=== PATIENT | male | born 1975 | race Hispanic/Latino ===

== ENCOUNTER 2017-07-24 12:21 | Inpatient (IN) | payer OTHER ==
[2017-07-24] MEDS ORDERED: Sodium Chloride 0.9% 1,000 ML IV STA ×2 (12:57→14:09)
[2017-07-24] MEDS ORDERED: Piperacillin/Tazobact 3.375 GM in Sodium Chloride 0.9% 100 ML IVPB STA (12:58)
--- NOTE | 2017-07-24 13:06 | ED PDOC ---
HPI: General Adult Time Seen by Provider: 07/24/17 12:45 Chief Complaint (Nursing): Male Genitourinary History Per: Patient Additional Complaint(s): Pt. states for the past 6 days he's had progressively worsening rectal pain. Pt. was seen by Dr. Greer, PMD, who prescribed an unknown antibiotic which has not provided any relief. Denies fever, trauma, bleeding. Past Medical History Reviewed: Historical Data, Nursing Documentation, Vital Signs Vital Signs: Last Vital Signs Temp 98.9 F 07/24/17 18:17 Pulse 91 H 07/24/17 18:42 Resp 16 07/24/17 18:42 BP 123/89 07/24/17 18:17 Pulse Ox 98 07/24/17 18:21 - Medical History PMH: Diabetes, HTN - Surgical History Surgical History: No Surg Hx - Family History Family History: States: No Known Family Hx - Home Medications Home Medications: Ambulatory Orders Medication Instructions Recorded Alpha Lipoic Acid [Alpha Lipoic 300 mg PO TID 07/24/17 Acid] Clindamycin [Cleocin] 300 mg PO TID 07/24/17 Ibuprofen [Motrin Tab] 600 mg PO Q6H PRN 07/24/17 Lansoprazole [Prevacid 24Hr] 15 mg PO DAILY 07/24/17 Metformin ER [Glucophage XR] 750 mg PO BID 07/24/17 Metoprolol Tartrate [Lopressor] 25 mg PO Q12H 07/24/17 SITagliptin [Januvia] 100 mg PO DAILY 07/24/17 Turmeric Root Extract [Turmeric] 1,000 mg PO DAILY 07/24/17 Valsartan/Hydrochlorothiazide 1 tab PO DAILY 07/24/17 [Diovan Hct 160-12.5 mg Tab] traMADol [Ultram] 50 mg PO Q12H PRN 07/24/17 - Allergies Allergies/Adverse Reactions: Allergies Allergy/AdvReac Type Severity Reaction Status Date / Time No Known Allergies Allergy Verified 07/24/17 12:23 Review of Systems ROS Statement: Except As Marked, All Systems Reviewed And Found Negative Gastrointestinal: Positive for: Rectal Pain Physical Exam - Reviewed Nursing Documentation Reviewed: Yes Vital Signs Reviewed: Yes - Physical Exam Appears: Positive for: Well, Non-toxic, Uncomfortable Head Exam: Positive for: ATRAUMATIC, NORMAL INSPECTION, NORMOCEPHALIC Skin: Positive for: Normal Color, Warm. Negative for: Rash Eye Exam: Positive for: Normal appearance ENT: Positive for: Normal ENT Inspection Neck: Positive for: Normal, Painless ROM Cardiovascular/Chest: Positive for: Regular Rate, Rhythm Respiratory: Positive for: CNT, Normal Breath Sounds Gastrointestinal/Abdominal: Positive for: Normal Exam, Soft. Negative for: Tenderness Back: Positive for: Normal Inspection Rectal: Positive for: Other (L medial buttock with erythema moderate tenderness and fluctuance with extention into rectum; no bleeding noted) Extremity: Positive for: Normal ROM Neurologic/Psych: Positive for: Alert, Oriented - Laboratory Results Result Diagrams: 07/24/17 13:26 07/24/17 13:26 - ECG ECG: Positive for: Interpreted By Me ECG Rhythm: Positive for: Sinus Rhythm. Negative for: ST/T Changes Rate: 91 O2 Sat by Pulse Oximetry: 98 - Progress ED Course And Treament: Labs ordered. Pelvis CT w/ IV contrast ordered. Morphine 4mg IV, zofran 4mg IV, zosyn IV, vancomycin IV ordered. 1409 Pt. with continued pain. Glucose 354. IV NS bolus x 1, dilaudid 1mg IV ordered. 1724 Case d/w Corina and agrees with care. Requests pt. to be NPO after midnight. 1800 Case d/w Dr. Caceres, claims vice president. Medical Decision Making Medical Decision Making: Pelvic CT w/ IV contrast: Left perirectal fluid collection suspicious for abscess measures approximately 4.3 x 1.8 x 4.5 cm. Pt. returned from CT with worsening pain. Toradol 30mg IV ordered. Case d/w Rodney Awad, AURELIANO, and arrangements made for admisison due failed outpt therapy and intractable pain. Requests Dr. Arriaga for surgery consult. Call placed Dr. Arriaga. Disposition - Clinical Impression Clinical Impression: Perirectal abscess - Patient ED Disposition Is Patient to be Admitted: Yes - Disposition Disposition: Routine/Home Disposition Time: 17:27 Condition: STABLE
[2017-07-24] MEDS ORDERED: Morphine 4 MG/ML VIAL ONE ×2 (13:27→18:56)
[2017-07-24 13:31] LABS: BASO # 0.1 K/uL (0.0-0.2); EOS # 0.1 K/uL (0.0-0.7); EOS % 0.7 % (0.0-4.0); HEMATOCRIT 42.8 % (35.0-51.0); LYMPH # 1.3 K/uL (1.0-4.3); LYMPH % 18.4 % (20.0-40.0); MEAN CELL VOLUME 87.8 fl (80.0-94.0); MEAN CORPUSCULAR HEMOGLOBIN 31.3 pg (27.0-31.0); MEAN CORPUSCULAR HGB CONC 35.7 g/dL (33.0-37.0); MONO % 13.3 % (0.0-10.0); NEUT # 4.8 K/uL (1.8-7.0); NEUT % 66.6 % (50.0-75.0); NRBC % 0.1 % (0.0-0.0); RED CELL DISTRIBUTION WIDTH 12.3 % (11.5-14.5); WHITE BLOOD COUNT 7.2 K/uL (4.8-10.8)
[2017-07-24 13:35] LABS: VENOUS BLOOD GAS BASE EXCESS 2.2 mmol/L (0.0-2.0); VENOUS BLOOD GAS PCO2 35 mmHg (40-60); VENOUS BLOOD PH 7.47 (7.32-7.43)
[2017-07-24 13:39] LABS: ALB/GLOB RATIO 1.4 (1.0-2.1); ALKALINE PHOSPHATASE 173 U/L (38-126); ALT/SGPT 104 U/L (21-72); AST/SGOT 89 U/L (17-59); BILIRUBIN,TOTAL 1.3 mg/dl (0.2-1.3); BLOOD UREA NITROGEN 20 mg/dl (9-20); CALCIUM 9.9 mg/dL (8.4-10.2); CARBON DIOXIDE 27 mmol/L (22-30); CHLORIDE 97 mmol/L (98-107); GFR AFRICAN-AMERICAN > 60; GLUCOSE,RANDOM 352 mg/dL (75-110); POTASSIUM 4.8 MMOL/L (3.6-5.0); SODIUM 136 mmol/l (132-148)
[2017-07-24] MEDS ORDERED: HYDROmorphone 0.5 mg/0.5 ml ISec ONE ×2 (14:13→15:07)
[2017-07-24] MEDS ORDERED: HYDROmorphone 0.5 mg/0.5 ml ISec IVP STA (14:14)
[2017-07-24] MEDS ORDERED: Iohexol 300 100 ML IJ ONE (15:02)
[2017-07-24] MEDS ORDERED: Sodium Chloride 0.9% 50 ML IV ONE (15:02)
--- NOTE | 2017-07-24 17:12 | CT ---
PROCEDURE: CT Pelvis with contrast HISTORY: justin-rectal abscess COMPARISON: None available. TECHNIQUE: Contiguous axial images of the pelvis with contrast. Coronal and sagittal reformats generated and reviewed. Contrast dose: 95 mL Omnipaque 300 Radiation dose: Total exam DLP = 443.16 MGy-cm. This CT exam was performed using one or more of the following dose reduction techniques: Automated exposure control, adjustment of the mA and/or kV according to patient size, and/or use of iterative reconstruction technique. FINDINGS: BLADDER: Distended urinary bladder appears otherwise grossly unremarkable. REPRODUCTIVE ORGANS: Unremarkable. VISUALIZED BOWEL: Lack of oral contrast limits evaluation for bowel pathology. Visualized bowel loops appear within normal limits of caliber without evidence of obstruction. The appendix appears within normal limits of caliber. No secondary signs of acute appendicitis. PERITONEUM: No significant free fluid. No definite free air. LYMPH NODES: No bulky adenopathy identified. VASCULATURE: Unremarkable. BONES: No acute osseous abnormality is detected. OTHER FINDINGS: Left perirectal fluid collection suspicious for abscess measures approximately 4.3 x 1.8 x 4.5 cm (AP by transverse by cc). IMPRESSION: Left perirectal fluid collection suspicious for abscess measures approximately 4.3 x 1.8 x 4.5 cm.
[2017-07-24 18:51] LABS: PARTIAL THROMBOPLASTIN TIME 29.6 Seconds (25.6-37.1)
[2017-07-24] MEDS: Sodium Chloride 0.9% 1,000 ML IV SCH (18:59)
[2017-07-24] MEDS: Piperacillin/Tazobact 3.375 GM in Sodium Chloride 0.9% 100 ML IVPB SCH (21:36)
--- NOTE | 2017-07-24 22:19 | CP.PCM.CON ---
<Krunal Freeman - Last Filed: 07/24/17 22:11> History of Present Illness - History of Present Illness History of Present Illness: General Surgery Consult Re: perianal abscess HPI: 41M with progressive rectal pain and swelling x 6 days. Saw PMD after 3 days and was given clindamycin. Still worsened. Denies fever/chills, N/V, bleeding/discharge, SOB, chest pain, abd pain. PMH: DM, HTN, gastritis PSH: hernia repair SH: Former smoker quir 20+ years ago, 2-3glasses EtOH every other day, no drug use All: NKDA Meds: See MAR Review of Systems - Review of Systems All systems: reviewed and no additional remarkable complaints except (as per HPI ) Past Patient History - Past Social History Smoking Status: Never Smoked - CARDIAC Hx Hypertension: Yes - ENDOCRINE/METABOLIC Hx Endocrine Disorders: Yes (DM) - PSYCHIATRIC Hx Substance Use: No Meds Allergies/Adverse Reactions: Allergies Allergy/AdvReac Type Severity Reaction Status Date / Time No Known Allergies Allergy Verified 07/24/17 12:23 - Medications Medications: Current Medications Home Med (Alpha Lipoic Acid [Alpha Lipoic Acid]) 300 mg PO TID TARA Home Med (Metformin Er [Glucophage Xr]) 750 mg PO BID TARA Home Med (Turmeric Root Extract [Turmeric]) 1,000 mg PO DAILY TARA Hydrochlorothiazide (Microzide) 12.5 mg PO DAILY TARA Hydromorphone HCl (Dilaudid) 1 mg IVP Q4 PRN PRN Reason: Pain, severe (8-10) Last Admin: 07/24/17 21:35 Dose: 1 mg Sodium Chloride (Sodium Chloride 0.9%) 1,000 mls @ 125 mls/hr IV .Q8H TARA Stop: 07/25/17 18:00 Last Admin: 07/24/17 18:59 Dose: 125 mls/hr Vancomycin HCl 1 gm/ Sodium (Chloride) 250 mls @ 166.667 mls/hr IVPB Q12 TARA PRN Reason: Protocol Piperacillin Sod/Tazobactam (Sod 3.375 gm/ Sodium Chloride) 100 mls @ 100 mls/ hr IVPB Q12 TARA PRN Reason: Protocol Last Admin: 07/24/17 21:36 Dose: 100 mls/hr Insulin Human Regular (Humulin R) 0 units SC ACHS [facility] PRN Reason: Protocol Ketorolac Tromethamine (Toradol) 30 mg IVP Q6 PRN PRN Reason: Pain, Mild (1-3) Metoprolol Tartrate (Lopressor) 25 mg PO Q12H [facility] Last Admin: 07/24/17 20:05 Dose: Not Given Morphine Sulfate (Morphine) 4 mg IVP Q4 PRN PRN Reason: Pain, moderate (4-7) Last Admin: 07/24/17 18:56 Dose: 4 mg Pantoprazole Sodium (Protonix Ec Tab) 20 mg PO DAILY [facility] Sitagliptin Phosphate (Januvia) 100 mg PO DAILY [facility] Valsartan (Diovan) 160 mg PO DAILY [facility] Physical Exam - Constitutional Appears: Non-toxic, No Acute Distress - Head Exam Head Exam: ATRAUMATIC, NORMOCEPHALIC - Eye Exam Eye Exam: EOMI. absent: Scleral icterus - ENT Exam ENT Exam: Mucous Membranes Moist Additional comments: trachea midline - Respiratory Exam Respiratory Exam: NORMAL BREATHING PATTERN. absent: Respiratory Distress - Cardiovascular Exam Cardiovascular Exam: RRR. absent: Bradycardia, Tachycardia - GI/Abdominal Exam GI & Abdominal Exam: Soft. absent: Distended, Tenderness - Rectal Exam Rectal Exam: Deferred Additional comments: 4x4cm area of induration and erythema with central fluctuance. Very TTP. no drainage/bleeding noted - Extremities Exam Extremities exam: Positive for: pedal pulses present. Negative for: calf tenderness, pedal edema - Back Exam Back exam: absent: CVA tenderness (L), CVA tenderness (R) - Neurological Exam Neurological exam: Alert, Oriented x3 - Psychiatric Exam Psychiatric exam: Normal Affect, Normal Mood - Skin Skin Exam: Dry, Warm Results - Vital Signs Recent Vital Signs: Last Vital Signs Temp 99.2 F 07/24/17 19:50 Pulse 91 H 07/24/17 19:50 Resp 18 07/24/17 19:50 BP 130/81 07/24/17 19:50 Pulse Ox 95 07/24/17 19:50 - Labs Result Diagrams: 07/24/17 13:26 07/24/17 13:26 Labs: Laboratory Results - last 24 hr 07/24/17 07/24/17 07/24/17 13:08 13:26 13:26 WBC 7.2 RBC 4.87 Hgb 15.3 Hct 42.8 MCV 87.8 MCH 31.3 H MCHC 35.7 RDW 12.3 Plt Count 155 MPV 7.0 L Neut % (Auto) 66.6 Lymph % (Auto) 18.4 L Coke % (Auto) 13.3 H Eos % (Auto) 0.7 Baso % (Auto) 1.0 Neut # 4.8 Lymph # 1.3 Coke # 1.0 H Eos # 0.1 Baso # 0.1 PT INR APTT pO2 34 VBG pH 7.47 H VBG pCO2 35 L VBG HCO3 25.9 VBG Total CO2 26.6 VBG O2 Sat (Calc) 76.8 H VBG Base Excess 2.2 H VBG Potassium 4.3 A-a O2 Difference 72.0 Sodium 133.0 136 Chloride 97.0 L 97 L Glucose 370 H Lactate 2.1 FiO2 21.0 Crit Value Called To Dr bharath chandra Crit Value Called By 15 Crit Value Read Back Y Blood Gas Notified Time 1335 Potassium 4.8 Carbon Dioxide 27 Anion Gap 17 BUN 20 Creatinine 0.6 L Est GFR ( Amer) > 60 Est GFR (Non-Af Amer) > 60 POC Glucose (mg/dL) Random Glucose 352 H Calcium 9.9 Total Bilirubin 1.3 AST 89 H ALT 104 H Alkaline Phosphatase 173 H Total Protein 8.0 Albumin 4.7 Globulin 3.3 Albumin/Globulin Ratio 1.4 Venous Blood Potassium 4.3 Blood Type Antibody Screen BBK History Checked 07/24/17 07/24/17 07/24/17 18:10 18:10 21:42 WBC RBC Hgb Hct MCV MCH MCHC RDW Plt Count MPV Neut % (Auto) Lymph % (Auto) Coke % (Auto) Eos % (Auto) Baso % (Auto) Neut # Lymph # Coke # Eos # Baso # PT 12.1 INR 1.1 APTT 29.6 pO2 VBG pH VBG pCO2 VBG HCO3 VBG Total CO2 VBG O2 Sat (Calc) VBG Base Excess VBG Potassium A-a O2 Difference Sodium Chloride Glucose Lactate FiO2 Crit Value Called To Crit Value Called By Crit Value Read Back Blood Gas Notified Time Potassium Carbon Dioxide Anion Gap BUN Creatinine Est GFR ( Amer) Est GFR (Non-Af Amer) POC Glucose (mg/dL) 276 H Random Glucose Calcium Total Bilirubin AST ALT Alkaline Phosphatase Total Protein Albumin Globulin Albumin/Globulin Ratio Venous Blood Potassium Blood Type A POSITIVE Antibody Screen Negative BBK History Checked No verified bt - Imaging and Cardiology CT scan - pelvis Status: Image reviewed by me, Report reviewed by me Assessment & Plan - Assessment and Plan (Free Text) Assessment: 41M with perianal abscess Plan: NPO p MN IV abx, on vanc and zosyn IVF AM labs Analgesia PRN OR Friday07/25/17 D/W Dr. Darron Freeman PGY4 <Cristopher Rob - Last Filed: 07/25/17 12:54> History of Present Illness - History of Present Illness History of Present Illness: Patient was seen and examined at the bedside. Agree with resident's note above. Meds - Medications Medications: Current Medications Hydrochlorothiazide (Microzide) 12.5 mg PO DAILY [facility] Last Admin: 07/25/17 11:10 Dose: 12.5 mg Hydromorphone HCl (Dilaudid) 1 mg IVP Q4 PRN PRN Reason: Pain, severe (8-10) Last Admin: 07/25/17 09:34 Dose: 1 mg Sodium Chloride (Sodium Chloride 0.9%) 1,000 mls @ 125 mls/hr IV .Q8H [facility] Stop: 07/25/17 18:00 Last Admin: 07/25/17 11:10 Dose: 125 mls/hr Vancomycin HCl 1 gm/ Sodium (Chloride) 250 mls @ 166.667 mls/hr IVPB Q12 TARA PRN Reason: Protocol Last Admin: 07/25/17 11:08 Dose: 166.667 mls/hr Piperacillin Sod/Tazobactam (Sod 3.375 gm/ Sodium Chloride) 100 mls @ 100 mls/ hr IVPB Q12 TARA PRN Reason: Protocol Last Admin: 07/25/17 09:28 Dose: 100 mls/hr Insulin Human Regular (Humulin R) 0 units SC ACHS TARA PRN Reason: Protocol Last Admin: 07/25/17 09:27 Dose: Not Given Ketorolac Tromethamine (Toradol) 30 mg IVP Q6 PRN PRN Reason: Pain, Mild (1-3) Metformin HCl (Glucophage) 850 mg PO BID [facility] Last Admin: 07/25/17 11:02 Dose: Not Given Metoprolol Tartrate (Lopressor) 25 mg PO Q12H [facility] Last Admin: 07/25/17 08:25 Dose: 25 mg Morphine Sulfate (Morphine) 4 mg IVP Q4 PRN PRN Reason: Pain, moderate (4-7) Last Admin: 07/25/17 06:39 Dose: 4 mg Ondansetron HCl (Zofran Inj) 4 mg IVP Q6 PRN PRN Reason: Nausea/Vomiting Last Admin: 07/24/17 23:32 Dose: 4 mg Pantoprazole Sodium (Protonix Ec Tab) 20 mg PO DAILY [facility] Last Admin: 07/25/17 11:03 Dose: Not Given Sitagliptin Phosphate (Januvia) 100 mg PO DAILY [facility] Last Admin: 07/25/17 11:02 Dose: Not Given Valsartan (Diovan) 160 mg PO DAILY [facility] Last Admin: 07/25/17 11:10 Dose: Not Given Results - Vital Signs Recent Vital Signs: Last Vital Signs Temp 100.6 F H 07/25/17 08:39 Pulse 95 H 07/25/17 08:39 Resp 20 07/25/17 08:39 BP 137/92 H 07/25/17 08:39 Pulse Ox 98 07/25/17 08:39 - Labs Result Diagrams: 07/25/17 06:15 07/25/17 06:15 Labs: Laboratory Results - last 24 hr 07/24/17 07/24/17 07/24/17 13:08 13:26 13:26 WBC 7.2 RBC 4.87 Hgb 15.3 Hct 42.8 MCV 87.8 MCH 31.3 H MCHC 35.7 RDW 12.3 Plt Count 155 MPV 7.0 L Neut % (Auto) 66.6 Lymph % (Auto) 18.4 L Coke % (Auto) 13.3 H Eos % (Auto) 0.7 Baso % (Auto) 1.0 Neut # 4.8 Lymph # 1.3 Coke # 1.0 H Eos # 0.1 Baso # 0.1 PT INR APTT pO2 34 VBG pH 7.47 H VBG pCO2 35 L VBG HCO3 25.9 VBG Total CO2 26.6 VBG O2 Sat (Calc) 76.8 H VBG Base Excess 2.2 H VBG Potassium 4.3 A-a O2 Difference 72.0 Sodium 133.0 136 Chloride 97.0 L 97 L Glucose 370 H Lactate 2.1 FiO2 21.0 Crit Value Called To Dr bharath chandra Crit Value Called By 15 Crit Value Read Back Y Blood Gas Notified Time 1335 Potassium 4.8 Carbon Dioxide 27 Anion Gap 17 BUN 20 Creatinine 0.6 L Est GFR ( Amer) > 60 Est GFR (Non-Af Amer) > 60 POC Glucose (mg/dL) Random Glucose 352 H Calcium 9.9 Total Bilirubin 1.3 AST 89 H ALT 104 H Alkaline Phosphatase 173 H Total Protein 8.0 Albumin 4.7 Globulin 3.3 Albumin/Globulin Ratio 1.4 Venous Blood Potassium 4.3 Blood Type Antibody Screen BBK History Checked 07/24/17 07/24/17 07/24/17 18:10 18:10 21:42 WBC RBC Hgb Hct MCV MCH MCHC RDW Plt Count MPV Neut % (Auto) Lymph % (Auto) Coke % (Auto) Eos % (Auto) Baso % (Auto) Neut # Lymph # Coke # Eos # Baso # PT 12.1 INR 1.1 APTT 29.6 pO2 VBG pH VBG pCO2 VBG HCO3 VBG Total CO2 VBG O2 Sat (Calc) VBG Base Excess VBG Potassium A-a O2 Difference Sodium Chloride Glucose Lactate FiO2 Crit Value Called To Crit Value Called By Crit Value Read Back Blood Gas Notified Time Potassium Carbon Dioxide Anion Gap BUN Creatinine Est GFR ( Amer) Est GFR (Non-Af Amer) POC Glucose (mg/dL) 276 H Random Glucose Calcium Total Bilirubin AST ALT Alkaline Phosphatase Total Protein Albumin Globulin Albumin/Globulin Ratio Venous Blood Potassium Blood Type A POSITIVE Antibody Screen Negative BBK History Checked No verified bt 07/25/17 07/25/17 07/25/17 05:56 06:15 06:15 WBC 5.3 RBC 4.06 L Hgb 12.3 D Hct 36.0 MCV 88.6 MCH 30.3 MCHC 34.2 RDW 12.2 Plt Count 108 L D MPV 7.2 Neut % (Auto) 63.8 Lymph % (Auto) 18.8 L Coke % (Auto) 15.5 H Eos % (Auto) 1.0 Baso % (Auto) 0.9 Neut # 3.4 Lymph # 1.0 Coke # 0.8 Eos # 0.1 Baso # 0.1 PT INR APTT pO2 VBG pH VBG pCO2 VBG HCO3 VBG Total CO2 VBG O2 Sat (Calc) VBG Base Excess VBG Potassium A-a O2 Difference Sodium 133 Chloride 102 Glucose Lactate FiO2 Crit Value Called To Crit Value Called By Crit Value Read Back Blood Gas Notified Time Potassium 4.0 Carbon Dioxide 24 Anion Gap 11 BUN 16 Creatinine 0.7 L Est GFR ( Amer) > 60 Est GFR (Non-Af Amer) > 60 POC Glucose (mg/dL) 214 H Random Glucose 206 H Calcium 7.9 L Total Bilirubin 0.9 AST 69 H D ALT 87 H Alkaline Phosphatase 130 H D Total Protein 6.1 L Albumin 3.6 Globulin 2.5 Albumin/Globulin Ratio 1.4 Venous Blood Potassium Blood Type Antibody Screen BBK History Checked 07/25/17 11:17 WBC RBC Hgb Hct MCV MCH MCHC RDW Plt Count MPV Neut % (Auto) Lymph % (Auto) Coke % (Auto) Eos % (Auto) Baso % (Auto) Neut # Lymph # Coke # Eos # Baso # PT INR APTT pO2 VBG pH VBG pCO2 VBG HCO3 VBG Total CO2 VBG O2 Sat (Calc) VBG Base Excess VBG Potassium A-a O2 Difference Sodium Chloride Glucose Lactate FiO2 Crit Value Called To Crit Value Called By Crit Value Read Back Blood Gas Notified Time Potassium Carbon Dioxide Anion Gap BUN Creatinine Est GFR ( Amer) Est GFR (Non-Af Amer) POC Glucose (mg/dL) 199 H Random Glucose Calcium Total Bilirubin AST ALT Alkaline Phosphatase Total Protein Albumin Globulin Albumin/Globulin Ratio Venous Blood Potassium Blood Type Antibody Screen BBK History Checked
[2017-07-24] MEDS: Insulin Regular 100 units/ml SC SCH (22:34)
[2017-07-25] MEDS: Sodium Chloride 0.9% 1,000 ML IV SCH ×3 (03:59→18:45)
[2017-07-25 07:13] LABS: BASO # 0.1 K/uL (0.0-0.2); BASO % 0.9 % (0.0-2.0); EOS # 0.1 K/uL (0.0-0.7); LYMPH % 18.8 % (20.0-40.0); MEAN CELL VOLUME 88.6 fl (80.0-94.0); MEAN CORPUSCULAR HEMOGLOBIN 30.3 pg (27.0-31.0); MEAN CORPUSCULAR HGB CONC 34.2 g/dL (33.0-37.0); MEAN PLATELET VOLUME 7.2 fl (7.2-11.7); MONO # 0.8 K/uL (0.0-0.8); MONO % 15.5 % (0.0-10.0); NEUT # 3.4 K/uL (1.8-7.0); NEUT % 63.8 % (50.0-75.0); RED CELL DISTRIBUTION WIDTH 12.2 % (11.5-14.5); WHITE BLOOD COUNT 5.3 K/uL (4.8-10.8)
[2017-07-25 08:06] LABS: ALB/GLOB RATIO 1.4 (1.0-2.1); ALKALINE PHOSPHATASE 130 U/L (38-126); ALT/SGPT 87 U/L (21-72); AST/SGOT 69 U/L (17-59); BILIRUBIN,TOTAL 0.9 mg/dl (0.2-1.3); BLOOD UREA NITROGEN 16 mg/dl (9-20); CALCIUM 7.9 mg/dL (8.4-10.2); CARBON DIOXIDE 24 mmol/L (22-30); CHLORIDE 102 mmol/L (98-107); GFR AFRICAN-AMERICAN > 60; GLUCOSE,RANDOM 206 mg/dL (75-110); SODIUM 133 mmol/l (132-148); TOTAL PROTEIN 6.1 G/DL (6.3-8.2)
[2017-07-25] MEDS ORDERED: ALPHA LIPOIC ACID 300 MG PO SCH (09:00)
[2017-07-25] MEDS ORDERED: Patient's Own Med (Valsartan/Hydrochlorothiazide [Diovan Hct 160-12.5 Mg Tab] 1 TAB) PO SCH (09:00)
[2017-07-25] MEDS: Insulin Regular 100 units/ml SC SCH ×4 (09:27→22:00)
[2017-07-25] MEDS: Piperacillin/Tazobact 3.375 GM in Sodium Chloride 0.9% 100 ML IVPB SCH ×2 (09:28→21:27)
--- NOTE | 2017-07-25 09:30 | RAD ---
HISTORY: clearance COMPARISON: Chest radiograph dated 10/01/2010 FINDINGS: LUNGS: No active pulmonary disease. PLEURA: No significant pleural effusion identified, no pneumothorax apparent. CARDIOVASCULAR: Normal. OSSEOUS STRUCTURES: No significant abnormalities. VISUALIZED UPPER ABDOMEN: Normal. OTHER FINDINGS: None. IMPRESSION: No active disease.
--- NOTE | 2017-07-25 10:24 | CP.PCM.HP ---
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 no f/c, n/v/d. bw noted. lft elevated but trending down. glucose normalizing. seen w/ surgial residents at bedside for or I/D today. on anbx. pt w/ rectal pain. Present on Admission - Present on Admission Any Indicators Present on Admission: Yes History of Uncontrolled Diabetes: Yes Review of Systems - Integumentary Integumentary: As Per HPI Past Patient History - Past Medical History & Family History Past Medical History?: Yes - Past Social History Smoking Status: Never Smoked - CARDIAC Hx Hypertension: Yes - PULMONARY Hx Respiratory Disorders: No - NEUROLOGICAL Hx Neurological Disorder: No - HEENT Hx HEENT Problems: Yes Other/Comment: Wears eye glasses - RENAL Hx Chronic Kidney Disease: No - ENDOCRINE/METABOLIC Hx Endocrine Disorders: Yes (DM) - HEMATOLOGICAL/ONCOLOGICAL Hx Blood Disorders: No - INTEGUMENTARY Hx Dermatological Problems: No - MUSCULOSKELETAL/RHEUMATOLOGICAL Hx Musculoskeletal Disorders: Yes Hx Falls: Yes - GASTROINTESTINAL Hx Gastrointestinal Disorders: No - GENITOURINARY/GYNECOLOGICAL Hx Genitourinary Disorders: No - PSYCHIATRIC Hx Substance Use: No - SURGICAL HISTORY Hx Surgeries: Yes Other/Comment: Hernial surgery during childhood - ANESTHESIA Hx Anesthesia: Yes Hx Anesthesia Reactions: No Hx Malignant Hyperthermia: No Has any member of the family had a problem w/ anesthesia?: No Meds Home Medications: Home Medication List Medication Instructions Recorded Confirmed Type Amoxicillin/Clavulanate [Augmentin 1 tab PO BID #14 tab 07/25/17 Rx 875 MG-125 MG] oxyCODONE/Acetaminophen [Percocet 1 tab PO Q4 PRN #10 tab 07/25/17 Rx 5/325 mg Tab] Allergies/Adverse Reactions: Allergies Allergy/AdvReac Type Severity Reaction Status Date / Time No Known Allergies Allergy Verified 07/24/17 12:23 Physical Exam - Constitutional Appears: Well, Non-toxic, No Acute Distress - Head Exam Head Exam: ATRAUMATIC, NORMAL INSPECTION, NORMOCEPHALIC - Eye Exam Eye Exam: EOMI, Normal appearance, PERRL Pupil Exam: NORMAL ACCOMODATION, PERRL - ENT Exam ENT Exam: Mucous Membranes Moist, Normal Exam - Neck Exam Neck exam: Positive for: Normal Inspection - Respiratory Exam Respiratory Exam: Clear to Auscultation Bilateral, NORMAL BREATHING PATTERN - Cardiovascular Exam Cardiovascular Exam: REGULAR RHYTHM, RRR - GI/Abdominal Exam GI & Abdominal Exam: Normal Bowel Sounds, Soft. absent: Tenderness - Extremities Exam Extremities exam: Positive for: full ROM, normal capillary refill, normal inspection, pedal pulses present - Back Exam Back exam: NORMAL INSPECTION - Neurological Exam Neurological exam: Alert, CN II-XII Intact, Normal Gait, Oriented x3, Reflexes Normal - Psychiatric Exam Psychiatric exam: Normal Affect, Normal Mood - Skin Skin Exam: Dry, Intact, Normal Color, Warm Results - Vital Signs Recent Vital Signs: Last Vital Signs Temp 100.6 F H 07/25/17 08:39 Pulse 95 H 07/25/17 08:39 Resp 20 07/25/17 08:39 BP 137/92 H 07/25/17 08:39 Pulse Ox 98 07/25/17 08:39 - Labs Result Diagrams: 07/25/17 06:15 07/25/17 06:15 Labs: Laboratory Results - last 24 hr 07/24/17 07/24/17 07/24/17 13:08 13:26 13:26 WBC 7.2 RBC 4.87 Hgb 15.3 Hct 42.8 MCV 87.8 MCH 31.3 H MCHC 35.7 RDW 12.3 Plt Count 155 MPV 7.0 L Neut % (Auto) 66.6 Lymph % (Auto) 18.4 L [place] % (Auto) 13.3 H Eos % (Auto) 0.7 Baso % (Auto) 1.0 Neut # 4.8 Lymph # 1.3 [place] # 1.0 H Eos # 0.1 Baso # 0.1 PT INR APTT pO2 34 VBG pH 7.47 H VBG pCO2 35 L VBG HCO3 25.9 VBG Total CO2 26.6 VBG O2 Sat (Calc) 76.8 H VBG Base Excess 2.2 H VBG Potassium 4.3 A-a O2 Difference 72.0 Sodium 133.0 136 Chloride 97.0 L 97 L Glucose 370 H Lactate 2.1 FiO2 21.0 Crit Value Called To Dr bharath chandra Crit Value Called By 15 Crit Value Read Back Y Blood Gas Notified Time 1335 Potassium 4.8 Carbon Dioxide 27 Anion Gap 17 BUN 20 Creatinine 0.6 L Est GFR ( Amer) > 60 Est GFR (Non-Af Amer) > 60 POC Glucose (mg/dL) Random Glucose 352 H Calcium 9.9 Total Bilirubin 1.3 AST 89 H ALT 104 H Alkaline Phosphatase 173 H Total Protein 8.0 Albumin 4.7 Globulin 3.3 Albumin/Globulin Ratio 1.4 Venous Blood Potassium 4.3 Blood Type Antibody Screen BBK History Checked 07/24/17 07/24/17 07/24/17 18:10 18:10 21:42 WBC RBC Hgb Hct MCV MCH MCHC RDW Plt Count MPV Neut % (Auto) Lymph % (Auto) [place] % (Auto) Eos % (Auto) Baso % (Auto) Neut # Lymph # [place] # Eos # Baso # PT 12.1 INR 1.1 APTT 29.6 pO2 VBG pH VBG pCO2 VBG HCO3 VBG Total CO2 VBG O2 Sat (Calc) VBG Base Excess VBG Potassium A-a O2 Difference Sodium Chloride Glucose Lactate FiO2 Crit Value Called To Crit Value Called By Crit Value Read Back Blood Gas Notified Time Potassium Carbon Dioxide Anion Gap BUN Creatinine Est GFR ( Amer) Est GFR (Non-Af Amer) POC Glucose (mg/dL) 276 H Random Glucose Calcium Total Bilirubin AST ALT Alkaline Phosphatase Total Protein Albumin Globulin Albumin/Globulin Ratio Venous Blood Potassium Blood Type A POSITIVE Antibody Screen Negative BBK History Checked No verified bt 07/25/17 07/25/17 07/25/17 05:56 06:15 06:15 WBC 5.3 RBC 4.06 L Hgb 12.3 D Hct 36.0 MCV 88.6 MCH 30.3 MCHC 34.2 RDW 12.2 Plt Count 108 L D MPV 7.2 Neut % (Auto) 63.8 Lymph % (Auto) 18.8 L [place] % (Auto) 15.5 H Eos % (Auto) 1.0 Baso % (Auto) 0.9 Neut # 3.4 Lymph # 1.0 [place] # 0.8 Eos # 0.1 Baso # 0.1 PT INR APTT pO2 VBG pH VBG pCO2 VBG HCO3 VBG Total CO2 VBG O2 Sat (Calc) VBG Base Excess VBG Potassium A-a O2 Difference Sodium 133 Chloride 102 Glucose Lactate FiO2 Crit Value Called To Crit Value Called By Crit Value Read Back Blood Gas Notified Time Potassium 4.0 Carbon Dioxide 24 Anion Gap 11 BUN 16 Creatinine 0.7 L Est GFR ( Amer) > 60 Est GFR (Non-Af Amer) > 60 POC Glucose (mg/dL) 214 H Random Glucose 206 H Calcium 7.9 L Total Bilirubin 0.9 AST 69 H D ALT 87 H Alkaline Phosphatase 130 H D Total Protein 6.1 L Albumin 3.6 Globulin 2.5 Albumin/Globulin Ratio 1.4 Venous Blood Potassium Blood Type Antibody Screen BBK History Checked Assessment & Plan (1) DVT prophylaxis Assessment and Plan: scd and ae hose ambulation lvoenox postop if admitted over 24h Status: Acute (2) Uncontrolled diabetes mellitus Assessment and Plan: fsbg, home meds, riss, ivf Status: Acute (3) Perirectal abscess Assessment and Plan: zosyn/vanco pain control surgical consult cleared for surgery today. Status: Acute Decision To Admit - Pt Status Changed To: Hospital Disposition Of: Inpatient - Admit Certification Admit to Inpatient:: After my assessment, the patient will require hospitalization for at least two midnights. This is because of the severity of symptoms shown, intensity of services needed, and/or the medical risk in this patient being treated as an outpatient. - . Bed Request Type: Med/Surg Admitting Physician: Daiana Trujillo
[2017-07-25] MEDS: Pantoprazole 20 mg EC Tab PO SCH (11:03)
[2017-07-25] MEDS ORDERED: ceFAZolin IV 1 gm in Dextrose 0 GM/0 ML BAG IVPB ONE (11:33)
[2017-07-25] MEDS ORDERED: Propofol 10 mg/ml Inj (20 ML) ONE ×2 (11:52→12:38)
[2017-07-25] MEDS ORDERED: Rocuronium 10 mg/ml (5 ml) ONE (11:53)
[2017-07-25] MEDS ORDERED: Midazolam 2 MG/2 ML VIAL ONE (11:53)
[2017-07-25] MEDS ORDERED: Succinylcholine 200 mg/10 ml Inj IV ONE (11:53)
[2017-07-25] MEDS ORDERED: Lactated Ringer's 1,000 ML IV ONE (11:55)
--- NOTE | 2017-07-25 12:05 | CARD ---
APPROVED REPORT EKG Measurement Heart [id number] ME [id number] <Conclusion> Normal sinus rhythm Normal ECG
[2017-07-25] MEDS ORDERED: Esmolol 100 mg/10ml Inj IV ONE (12:28)
--- NOTE | 2017-07-25 12:51 | PCM.SURG1 ---
Surgeon's Initial Post Op Note - Surgeon's Notes Surgeon: Cristopher Rob MD Core Loader: Chiquita Child PGY-1 Pre-Operative Diagnosis: Perianal abscess Operative Findings: See op report Post-Operative Diagnosis: Perianal abscess Operation Performed: Incision and drainage of perianal abscess with packing placement Specimen/Specimens Removed: None Estimated Blood Loss: EBL {In ML}: 5 Blood Products Given: N/A Drains Used: No Drains Post-Op Condition: Good Date of Surgery/Procedure: 07/25/17 Time of Surgery/Procedure: 12:51
[2017-07-25] MEDS ORDERED: Sodium Chloride 0.9% 1,000 ML IV ONE ×2 (12:53→13:43)
[2017-07-25] MEDS ORDERED: HYDROmorphone 0.5 mg/0.5 ml ISec IVP PRN (12:56)
--- NOTE | 2017-07-25 14:34 | OP ---
PROCEDURE DATE: PREOPERATIVE DIAGNOSES: Left gluteal and perianal abscess. POSTOPERATIVE DIAGNOSES: Left gluteal and perianal abscess. PROCEDURE: Incision and drainage of the left gluteal and perianal abscess. SURGEON: Cristopher Rob MD. COMMUNICATIONS STATION MANAGER: Danyell. TYPE OF ANESTHESIA: General with LMA intubation. INTRAOPERATIVE FINDINGS: Drained approximately 10 mL of purulent material. IV FLUID INTAKE: Crystalloids. ESTIMATED BLOOD LOSS: 10 mL. SPECIMEN: Wound cultures. BRIEF HISTORY: Mr. Hagen is a very pleasant 41-year-old gentleman, who presented to the hospital complaining of perianal and left buttocks pain for approximately a week and upon further investigation with a CAT scan, the patient was found to have perianal abscess. All the risks and benefits of the procedure were explained to the patient and with the patient having a full understanding of all the risks and benefits involved, informed consent was obtained and the patient was taken to the operating room for above-stated procedure. DESCRIPTION OF PROCEDURE: The patient was brought into the operating room and placed supine on the operating table. Bilateral Flowtron boots were applied to the patient's lower extremities. After successful induction of anesthesia and successful LMA intubation by the Anesthesia team, the patient was placed in the lithotomy position and the perianal area was prepped with Betadine and draped in a standard surgical fashion. Prior to the beginning of the procedure, time-out was called in the room and everyone in the room were in agreement. Once this was done, a digital rectal examination was performed and we could not appreciate any palpable masses. Sphincter tone was good and no gross blood. There appeared to be indurated area to the left buttocks closer to the anus and the area appeared to be fluctuant and there appeared to be some minimal drainage from the area. Once this was accomplished, using an 11-blade scalpel knife, approximately 2 cm incision was made right on top of the fluctuant area closer to the anus and at this point in time, we were able to express some purulent material. Wound cultures were obtained and at this point in time, using finger dissection, loculations were broken down bluntly and once this was accomplished, the patient's abscess cavity was copiously irrigated and the fluid was suctioned out and the abscess cavity was packed with half inch packing. At this point in time, the patient's perianal area was washed and dried and a clean dressing with 4x4's, ABD and some tape were applied to the site of the incision. The patient was placed back into the spinal position and was successfully extubated by the Anesthesia team and was transferred to the stretcher and taken to the recovery room in a stable condition. At the end of the procedure, all instrument counts, needles and sponges were correct. Cristopher Rob MD
[2017-07-25] MEDS ORDERED: Lidocaine 1% Inj (20ml) SC ONE (16:51)
[2017-07-25] MEDS ORDERED: HYDROmorphone 0.5 mg/0.5 ml ISec ONE (16:58)
[2017-07-25] MEDS ORDERED: Lidocaine 1% Inj (20ml) ONE (16:58)
[2017-07-25] MEDS ORDERED: HYDROmorphone 0.5 mg/0.5 ml ISec IVP STA (17:10)
[2017-07-26] MEDS ORDERED: Lidocaine 1% PF (5ml) Amp INJ ONE (05:53)
[2017-07-26] MEDS ORDERED: HYDROmorphone 0.5 mg/0.5 ml ISec IVP STA (05:54)
--- NOTE | 2017-07-26 05:57 | CP.PCM.PN ---
<Chiquita Child - Last Filed: 07/26/17 09:25> Subjective - Date & Time of Evaluation Date of Evaluation: 07/26/17 Time of Evaluation: 05:55 - Subjective Subjective: General surgery progress note for Dr. Rob-Chiquita Child, PGY-1 Pt S & E at bedside. Pt reports pain not well controlled overnight, requiring regular pain medication. Also reports that packing feel out with BM last evening- has had some serosangouinous output from site. Is very tender. Denies N & V, F & C, SOB, CP, other complaints. Does not want to go home today. Objective - Vital Signs/Intake and Output Vital Signs (last 24 hours): Temp Pulse Resp BP Pulse Ox 98.6 F 93 H 20 129/80 95 07/25/17 23:10 07/25/17 23:10 07/25/17 23:10 07/25/17 23:10 07/25/17 23:10 Intake and Output: 07/25/17 07/26/17 18:59 06:59 Intake Total 500 Balance 500 - Medications Medications: Current Medications Hydrochlorothiazide (Microzide) 12.5 mg PO DAILY [facility] Last Admin: 07/25/17 11:10 Dose: 12.5 mg Hydromorphone HCl (Dilaudid) 1 mg IVP Q4 PRN PRN Reason: Pain, severe (8-10) Last Admin: 07/26/17 02:50 Dose: 1 mg Vancomycin HCl 1 gm/ Sodium (Chloride) 250 mls @ 166.667 mls/hr IVPB Q12 TARA PRN Reason: Protocol Last Admin: 07/25/17 21:28 Dose: 166.667 mls/hr Piperacillin Sod/Tazobactam (Sod 3.375 gm/ Sodium Chloride) 100 mls @ 100 mls/ hr IVPB Q12 TARA PRN Reason: Protocol Last Admin: 07/25/17 21:27 Dose: 100 mls/hr Insulin Human Regular (Humulin R) 0 units SC ACHS TARA PRN Reason: Protocol Last Admin: 07/25/17 22:00 Dose: Not Given Ketorolac Tromethamine (Toradol) 30 mg IVP Q6 PRN PRN Reason: Pain, Mild (1-3) Last Admin: 07/26/17 04:50 Dose: 30 mg Metformin HCl (Glucophage) 850 mg PO BID [facility] Last Admin: 07/25/17 18:35 Dose: 850 mg Metoprolol Tartrate (Lopressor) 25 mg PO Q12H [facility] Last Admin: 07/25/17 18:36 Dose: 25 mg Morphine Sulfate (Morphine) 4 mg IVP Q4 PRN PRN Reason: Pain, moderate (4-7) Last Admin: 07/25/17 16:31 Dose: 4 mg Ondansetron HCl (Zofran Inj) 4 mg IVP Q6 PRN PRN Reason: Nausea/Vomiting Last Admin: 07/24/17 23:32 Dose: 4 mg Pantoprazole Sodium (Protonix Ec Tab) 20 mg PO DAILY [facility] Last Admin: 07/25/17 11:03 Dose: Not Given Sitagliptin Phosphate (Januvia) 100 mg PO DAILY [facility] Last Admin: 07/25/17 11:02 Dose: Not Given Valsartan (Diovan) 160 mg PO DAILY [facility] Last Admin: 07/25/17 11:10 Dose: Not Given - Labs Labs: 07/25/17 06:15 07/25/17 06:15 PT 12.1 Seconds (9.8-13.1) 07/24/17 18:10 INR 1.1 (0.9-1.2) 07/24/17 18:10 APTT 29.6 Seconds (25.6-37.1) 07/24/17 18:10 - Constitutional Appears: Non-toxic, No Acute Distress - Head Exam Head Exam: ATRAUMATIC, NORMAL INSPECTION, NORMOCEPHALIC - Eye Exam Eye Exam: EOMI, Normal appearance - ENT Exam ENT Exam: Mucous Membranes Moist, Normal Exam - Neck Exam Neck Exam: Full ROM, Normal Inspection - Respiratory Exam Respiratory Exam: Clear to Ausculation Bilateral, NORMAL BREATHING PATTERN - Cardiovascular Exam Cardiovascular Exam: REGULAR RHYTHM, +S1, +S2 - GI/Abdominal Exam GI & Abdominal Exam: Soft, Normal Bowel Sounds. absent: Tenderness - Rectal Exam Additional comments: Incision site with some serosanginous output on dressing, very tender to palpation, slight erythema, no purulent drainage - Extremities Exam Extremities Exam: Normal Inspection. absent: Tenderness - Back Exam Back Exam: NORMAL INSPECTION - Neurological Exam Neurological Exam: Alert, Awake, CN II-XII Intact, Oriented x3 - Psychiatric Exam Psychiatric exam: Anxious, Normal Mood - Skin Skin Exam: Dry, Normal Color, Warm. absent: Intact Additional comments: See rectal exam for skin findings, otherwise skin normal Assessment and Plan - Assessment and Plan (Free Text) Assessment: 41M POD#1 s/p I & D of perinanal abscess, pain not well controlled overnight Plan: Cont IV Abx Cont pain control Packing and dressing no longer in place Monitor site Ambulate Incentive spirometer Shower Ok to d/c home from surgical standpoint when pt comfortable, possibly tomorrow Further mgmt as per primary team DW attending Danyell, PGY-1 <Cristopher Rob - Last Filed: 07/26/17 12:24> Subjective - Date & Time of Evaluation Time of Evaluation: 12:00 - Subjective Subjective: Patient was seen and examined at the bedside. Agree with resident's note above. Objective - Vital Signs/Intake and Output Vital Signs (last 24 hours): Temp Pulse Resp BP Pulse Ox 97.7 F 87 20 144/95 H 94 L 07/26/17 08:14 07/26/17 08:14 07/26/17 08:14 07/26/17 08:14 07/26/17 08:14 - Medications Medications: Current Medications Hydrochlorothiazide (Microzide) 12.5 mg PO DAILY [facility] Last Admin: 07/26/17 09:13 Dose: 12.5 mg Hydromorphone HCl (Dilaudid) 1 mg IVP Q4 PRN PRN Reason: Pain, severe (8-10) Last Admin: 07/26/17 09:30 Dose: 1 mg Vancomycin HCl 1 gm/ Sodium (Chloride) 250 mls @ 166.667 mls/hr IVPB Q12 TARA PRN Reason: Protocol Last Admin: 07/26/17 10:14 Dose: 166.667 mls/hr Piperacillin Sod/Tazobactam (Sod 3.375 gm/ Sodium Chloride) 100 mls @ 100 mls/ hr IVPB Q12 TARA PRN Reason: Protocol Last Admin: 07/26/17 09:12 Dose: 100 mls/hr Insulin Human Regular (Humulin R) 0 units SC ACHS TARA PRN Reason: Protocol Last Admin: 07/26/17 09:17 Dose: 2 unit Ketorolac Tromethamine (Toradol) 30 mg IVP Q6 PRN PRN Reason: Pain, Mild (1-3) Last Admin: 07/26/17 04:50 Dose: 30 mg Metformin HCl (Glucophage) 850 mg PO BID [facility] Last Admin: 07/26/17 09:13 Dose: 850 mg Metoprolol Tartrate (Lopressor) 25 mg PO Q12H [facility] Last Admin: 07/26/17 06:47 Dose: 25 mg Morphine Sulfate (Morphine) 4 mg IVP Q4 PRN PRN Reason: Pain, moderate (4-7) Last Admin: 07/25/17 16:31 Dose: 4 mg Ondansetron HCl (Zofran Inj) 4 mg IVP Q6 PRN PRN Reason: Nausea/Vomiting Last Admin: 07/24/17 23:32 Dose: 4 mg Pantoprazole Sodium (Protonix Ec Tab) 20 mg PO DAILY [facility] Last Admin: 07/26/17 09:13 Dose: 20 mg Sitagliptin Phosphate (Januvia) 100 mg PO DAILY [facility] Last Admin: 07/26/17 09:13 Dose: 100 mg Valsartan (Diovan) 160 mg PO DAILY [facility] Last Admin: 07/26/17 09:13 Dose: 160 mg - Labs Labs: 07/26/17 07:00 07/26/17 07:00 PT 12.1 Seconds (9.8-13.1) 07/24/17 18:10 INR 1.1 (0.9-1.2) 07/24/17 18:10 APTT 29.6 Seconds (25.6-37.1) 07/24/17 18:10
[2017-07-26 07:27] LABS: BASO % 1.1 % (0.0-2.0); EOS # 0.1 K/uL (0.0-0.7); EOS % 1.4 % (0.0-4.0); HEMATOCRIT 36.1 % (35.0-51.0); LYMPH # 1.1 K/uL (1.0-4.3); LYMPH % 23.8 % (20.0-40.0); MEAN CELL VOLUME 89.5 fl (80.0-94.0); MEAN CORPUSCULAR HEMOGLOBIN 30.7 pg (27.0-31.0); MEAN CORPUSCULAR HGB CONC 34.2 g/dL (33.0-37.0); MEAN PLATELET VOLUME 6.7 fl (7.2-11.7); MONO # 0.8 K/uL (0.0-0.8); MONO % 17.8 % (0.0-10.0); NEUT # 2.6 K/uL (1.8-7.0); NEUT % 55.9 % (50.0-75.0); NRBC % 0.1 % (0.0-0.0); RED CELL DISTRIBUTION WIDTH 12.5 % (11.5-14.5); WHITE BLOOD COUNT 4.6 K/uL (4.8-10.8)
[2017-07-26 07:44] LABS: ALB/GLOB RATIO 1.2 (1.0-2.1); ALKALINE PHOSPHATASE 138 U/L (38-126); ALT/SGPT 96 U/L (21-72); AST/SGOT 87 U/L (17-59); BILIRUBIN,TOTAL 0.9 mg/dl (0.2-1.3); BLOOD UREA NITROGEN 17 mg/dl (9-20); CALCIUM 7.8 mg/dL (8.4-10.2); CARBON DIOXIDE 26 mmol/L (22-30); CHLORIDE 106 mmol/L (98-107); GFR AFRICAN-AMERICAN > 60; GLUCOSE,RANDOM 168 mg/dL (75-110); SODIUM 136 mmol/l (132-148); TOTAL PROTEIN 6.1 G/DL (6.3-8.2)
[2017-07-26] MEDS: Piperacillin/Tazobact 3.375 GM in Sodium Chloride 0.9% 100 ML IVPB SCH ×2 (09:12→20:45)
[2017-07-26] MEDS: Pantoprazole 20 mg EC Tab PO SCH (09:13)
[2017-07-26] MEDS: Insulin Regular 100 units/ml SC SCH ×4 (09:17→22:32)
--- NOTE | 2017-07-26 10:33 | CP.PCM.PN ---
Subjective - Date & Time of Evaluation Date of Evaluation: 07/26/17 Time of Evaluation: 10:32 - Subjective Subjective: doing well, still w/ pain in rectum. no f/c, n/v/d. bw noted. lft elevated states has been x 2yrs was dx w/ fatty liver. surgical note appriciated. Objective - Vital Signs/Intake and Output Vital Signs (last 24 hours): Temp Pulse Resp BP Pulse Ox 97.7 F 87 20 144/95 H 94 L 07/26/17 08:14 07/26/17 08:14 07/26/17 08:14 07/26/17 08:14 07/26/17 08:14 - Medications Medications: Current Medications Hydrochlorothiazide (Microzide) 12.5 mg PO DAILY [facility] Last Admin: 07/26/17 09:13 Dose: 12.5 mg Hydromorphone HCl (Dilaudid) 1 mg IVP Q4 PRN PRN Reason: Pain, severe (8-10) Last Admin: 07/26/17 09:30 Dose: 1 mg Vancomycin HCl 1 gm/ Sodium (Chloride) 250 mls @ 166.667 mls/hr IVPB Q12 TARA PRN Reason: Protocol Last Admin: 07/26/17 10:14 Dose: 166.667 mls/hr Piperacillin Sod/Tazobactam (Sod 3.375 gm/ Sodium Chloride) 100 mls @ 100 mls/ hr IVPB Q12 TARA PRN Reason: Protocol Last Admin: 07/26/17 09:12 Dose: 100 mls/hr Insulin Human Regular (Humulin R) 0 units SC ACHS TARA PRN Reason: Protocol Last Admin: 07/26/17 09:17 Dose: 2 unit Ketorolac Tromethamine (Toradol) 30 mg IVP Q6 PRN PRN Reason: Pain, Mild (1-3) Last Admin: 07/26/17 04:50 Dose: 30 mg Metformin HCl (Glucophage) 850 mg PO BID [facility] Last Admin: 07/26/17 09:13 Dose: 850 mg Metoprolol Tartrate (Lopressor) 25 mg PO Q12H [facility] Last Admin: 07/26/17 06:47 Dose: 25 mg Morphine Sulfate (Morphine) 4 mg IVP Q4 PRN PRN Reason: Pain, moderate (4-7) Last Admin: 07/25/17 16:31 Dose: 4 mg Ondansetron HCl (Zofran Inj) 4 mg IVP Q6 PRN PRN Reason: Nausea/Vomiting Last Admin: 07/24/17 23:32 Dose: 4 mg Pantoprazole Sodium (Protonix Ec Tab) 20 mg PO DAILY [facility] Last Admin: 07/26/17 09:13 Dose: 20 mg Sitagliptin Phosphate (Januvia) 100 mg PO DAILY [facility] Last Admin: 07/26/17 09:13 Dose: 100 mg Valsartan (Diovan) 160 mg PO DAILY [facility] Last Admin: 07/26/17 09:13 Dose: 160 mg - Labs Labs: 07/26/17 07:00 07/26/17 07:00 PT 12.1 Seconds (9.8-13.1) 07/24/17 18:10 INR 1.1 (0.9-1.2) 07/24/17 18:10 APTT 29.6 Seconds (25.6-37.1) 07/24/17 18:10 - Constitutional Appears: Well, Non-toxic, No Acute Distress - Head Exam Head Exam: ATRAUMATIC, NORMAL INSPECTION, NORMOCEPHALIC - Eye Exam Eye Exam: EOMI, Normal appearance, PERRL Pupil Exam: NORMAL ACCOMODATION, PERRL - ENT Exam ENT Exam: Mucous Membranes Moist, Normal Exam - Neck Exam Neck Exam: Full ROM, Normal Inspection. absent: Lymphadenopathy - Respiratory Exam Respiratory Exam: Clear to Ausculation Bilateral, NORMAL BREATHING PATTERN - Cardiovascular Exam Cardiovascular Exam: REGULAR RHYTHM, RRR, +S1, +S2. absent: Murmur - GI/Abdominal Exam GI & Abdominal Exam: Soft, Normal Bowel Sounds. absent: Tenderness - Extremities Exam Extremities Exam: Full ROM, Normal Capillary Refill, Normal Inspection. absent : Joint Swelling, Pedal Edema - Back Exam Back Exam: NORMAL INSPECTION - Neurological Exam Neurological Exam: Alert, Awake, CN II-XII Intact, Normal Gait, Oriented x3 - Psychiatric Exam Psychiatric exam: Normal Affect, Normal Mood - Skin Skin Exam: Dry, Intact, Normal Color, Warm Assessment and Plan (1) DVT prophylaxis Status: Acute (2) Uncontrolled diabetes mellitus Status: Acute (3) Perirectal abscess Status: Acute - Assessment and Plan (Free Text) Assessment: (1) DVT prophylaxis Assessment and Plan: scd and ae hose ambulation lvoenox postop if admitted over 24h Status: Acute (2) Uncontrolled diabetes mellitus Assessment and Plan: fsbg, home meds, riss, ivf Status: Acute (3) Perirectal abscess Assessment and Plan: zosyn/vanco pain control surgical consult pod 1. cleared by surgery for dc if pts pain is controlled. likely tomorrow Status: Acute 4-elev lft-has h/o same w/ fatty liver, will do us and follow
[2017-07-26] MEDS ORDERED: Loperamide 1MG/7.5ML UD PO PRN (22:41)
[2017-07-26] MEDS: Lactobacillus Acidophilus 500 MU Cap PO SCH (23:00)
[2017-07-27] MEDS: Insulin Regular 100 units/ml SC SCH ×2 (06:59→12:51)
[2017-07-27 08:19] VITALS: BP 157/93; PULSE 79; RESP 20; TEMP 98.9; O2SAT 95
[2017-07-27] MEDS: Lactobacillus Acidophilus 500 MU Cap PO SCH (10:15)
[2017-07-27] MEDS: Pantoprazole 20 mg EC Tab PO SCH (10:16)
[2017-07-27] MEDS: Piperacillin/Tazobact 3.375 GM in Sodium Chloride 0.9% 100 ML IVPB SCH (10:17)
--- NOTE | 2017-07-27 11:50 | CP.PCM.PN ---
Subjective - Date & Time of Evaluation Date of Evaluation: 07/27/17 Time of Evaluation: 11:30 - Subjective Subjective: Patient was seen and examined at the bedside. States that justin-anal pain has much improved. Objective - Vital Signs/Intake and Output Vital Signs (last 24 hours): Temp Pulse Resp BP Pulse Ox 98.9 F 79 20 157/93 H 95 07/27/17 08:15 07/27/17 08:15 07/27/17 08:15 07/27/17 08:15 07/27/17 08:15 - Medications Medications: Current Medications Hydrochlorothiazide (Microzide) 12.5 mg PO DAILY [facility] Last Admin: 07/27/17 10:16 Dose: 12.5 mg Hydromorphone HCl (Dilaudid) 1 mg IVP Q4 PRN PRN Reason: Pain, severe (8-10) Last Admin: 07/27/17 10:40 Dose: 1 mg Vancomycin HCl 1 gm/ Sodium (Chloride) 250 mls @ 166.667 mls/hr IVPB Q12 TARA PRN Reason: Protocol Last Admin: 07/27/17 10:16 Dose: 166.667 mls/hr Piperacillin Sod/Tazobactam (Sod 3.375 gm/ Sodium Chloride) 100 mls @ 100 mls/ hr IVPB Q12 TARA PRN Reason: Protocol Last Admin: 07/27/17 10:17 Dose: 100 mls/hr Insulin Human Regular (Humulin R) 0 units SC ACHS TARA PRN Reason: Protocol Last Admin: 07/27/17 06:59 Dose: Not Given Ketorolac Tromethamine (Toradol) 30 mg IVP Q6 PRN PRN Reason: Pain, Mild (1-3) Last Admin: 07/27/17 09:48 Dose: 30 mg Lactobacillus Acidophilus (Bacid Acidophilus) 1 cap PO BID [facility] Last Admin: 07/27/17 10:15 Dose: 1 cap Loperamide HCl (Imodium) 2 mg PO Q4 PRN PRN Reason: Diarrhea Metformin HCl (Glucophage) 850 mg PO BID [facility] Last Admin: 07/27/17 10:16 Dose: 850 mg Metoprolol Tartrate (Lopressor) 25 mg PO Q12H [facility] Last Admin: 07/27/17 06:37 Dose: 25 mg Morphine Sulfate (Morphine) 4 mg IVP Q4 PRN PRN Reason: Pain, moderate (4-7) Last Admin: 07/25/17 16:31 Dose: 4 mg Ondansetron HCl (Zofran Inj) 4 mg IVP Q6 PRN PRN Reason: Nausea/Vomiting Last Admin: 07/24/17 23:32 Dose: 4 mg Pantoprazole Sodium (Protonix Ec Tab) 20 mg PO DAILY [facility] Last Admin: 07/27/17 10:16 Dose: 20 mg Sitagliptin Phosphate (Januvia) 100 mg PO DAILY [facility] Last Admin: 07/27/17 10:16 Dose: 100 mg Valsartan (Diovan) 160 mg PO DAILY [facility] Last Admin: 07/27/17 10:15 Dose: 160 mg - Labs Labs: 07/26/17 07:00 07/26/17 07:00 PT 12.1 Seconds (9.8-13.1) 07/24/17 18:10 INR 1.1 (0.9-1.2) 07/24/17 18:10 APTT 29.6 Seconds (25.6-37.1) 07/24/17 18:10 - Constitutional Appears: Well, Non-toxic, No Acute Distress - Head Exam Head Exam: ATRAUMATIC, NORMAL INSPECTION, NORMOCEPHALIC - Eye Exam Eye Exam: EOMI, Normal appearance, PERRL Pupil Exam: NORMAL ACCOMODATION, PERRL - ENT Exam ENT Exam: Mucous Membranes Moist, Normal Exam - Neck Exam Neck Exam: Full ROM, Normal Inspection - Respiratory Exam Respiratory Exam: Clear to Ausculation Bilateral, NORMAL BREATHING PATTERN - Cardiovascular Exam Cardiovascular Exam: REGULAR RHYTHM, +S1, +S2 - GI/Abdominal Exam GI & Abdominal Exam: Soft, Normal Bowel Sounds Additional comments: NT, ND, no rebound, no guarding - Rectal Exam Additional comments: incision clean, minimal erythema, very minimal drainage, minimally tender to palpation - Extremities Exam Extremities Exam: Full ROM, Normal Inspection - Back Exam Back Exam: NORMAL INSPECTION - Neurological Exam Neurological Exam: Alert, Awake, CN II-XII Intact, Normal Gait, Oriented x3 - Psychiatric Exam Psychiatric exam: Normal Affect, Normal Mood - Skin Skin Exam: Dry, Intact, Normal Color, Warm Assessment and Plan - Assessment and Plan (Free Text) Assessment: 41 y.o. male s/p I&D of the justin-anal abscess Plan: - pain control - Continue diet - Clear for discharge home from the surgical stand point - Augmentin 875/125 mg po BID for 1 week on discharge - Patient will follow up with me in the office in 10 days to 2 weeks for post- op visit
[2017-07-27] MEDS ORDERED: Amoxicillin-Clav 875-125 mg Tab PO SCH (12:00)
--- NOTE | 2017-07-27 12:14 | CP.PCM.DIS ---
Provider - Provider Date of Admission: 07/24/17 17:22 Attending physician: Daiana Trujillo MD Time Spent in preparation of Discharge (in minutes): 15 Diagnosis - Discharge Diagnosis (1) DVT prophylaxis Status: Acute (2) Uncontrolled diabetes mellitus Status: Acute (3) Perirectal abscess Status: Acute Hospital Course - Lab Results Lab Results: Micro Results 07/25/17 14:25 Anus Gram Stain - Final 07/25/17 14:25 Anus Wound Culture - Final Klebsiella Pneumoniae Ssp Pneu 07/24/17 14:25 Blood Blood Culture - Preliminary NO GROWTH AFTER 48 HOURS 07/24/17 13:26 Blood Blood Culture - Preliminary NO GROWTH AFTER 48 HOURS Most Recent Lab Values WBC 4.6 K/uL (4.8-10.8) L 07/26/17 07:00 RBC 4.03 Mil/uL (4.40-5.90) L 07/26/17 07:00 Hgb 12.4 g/dL (12.0-18.0) 07/26/17 07:00 Hct 36.1 % (35.0-51.0) 07/26/17 07:00 MCV 89.5 fl (80.0-94.0) 07/26/17 07:00 MCH 30.7 pg (27.0-31.0) 07/26/17 07:00 MCHC 34.2 g/dL (33.0-37.0) 07/26/17 07:00 RDW 12.5 % (11.5-14.5) 07/26/17 07:00 Plt Count 100 K/uL (130-400) L 07/26/17 07:00 MPV 6.7 fl (7.2-11.7) L 07/26/17 07:00 Neut % (Auto) 55.9 % (50.0-75.0) 07/26/17 07:00 Lymph % (Auto) 23.8 % (20.0-40.0) 07/26/17 07:00 [place] % (Auto) 17.8 % (0.0-10.0) H 07/26/17 07:00 Eos % (Auto) 1.4 % (0.0-4.0) 07/26/17 07:00 Baso % (Auto) 1.1 % (0.0-2.0) 07/26/17 07:00 Neut # 2.6 K/uL (1.8-7.0) 07/26/17 07:00 Lymph # 1.1 K/uL (1.0-4.3) 07/26/17 07:00 [place] # 0.8 K/uL (0.0-0.8) 07/26/17 07:00 Eos # 0.1 K/uL (0.0-0.7) 07/26/17 07:00 Baso # 0.0 K/uL (0.0-0.2) 07/26/17 07:00 PT 12.1 Seconds (9.8-13.1) 07/24/17 18:10 INR 1.1 (0.9-1.2) 07/24/17 18:10 APTT 29.6 Seconds (25.6-37.1) 07/24/17 18:10 pO2 34 mm/Hg (30-55) 07/24/17 13:08 VBG pH 7.47 (7.32-7.43) H 07/24/17 13:08 VBG pCO2 35 mmHg (40-60) L 07/24/17 13:08 VBG HCO3 25.9 mmol/L 07/24/17 13:08 VBG Total CO2 26.6 mmol/L (22-28) 07/24/17 13:08 VBG O2 Sat (Calc) 76.8 % (40-65) H 07/24/17 13:08 VBG Base Excess 2.2 mmol/L (0.0-2.0) H 07/24/17 13:08 VBG Potassium 4.3 mmol/L (3.6-5.2) 07/24/17 13:08 A-a O2 Difference 72.0 mm/Hg 07/24/17 13:08 Sodium 133.0 mmol/L (132-148) 07/24/17 13:08 Chloride 97.0 mmol/L (98-107) L 07/24/17 13:08 Glucose 370 mg/dL (75-110) H 07/24/17 13:08 Lactate 2.1 mmol/L (0.7-2.1) 07/24/17 13:08 FiO2 21.0 % 07/24/17 13:08 Crit Value Called To Dr bharath chandra 07/24/17 13:08 Crit Value Called By 15 07/24/17 13:08 Crit Value Read Back Y 07/24/17 13:08 Blood Gas Notified Time 1335 07/24/17 13:08 Sodium 136 mmol/l (132-148) 07/26/17 07:00 Potassium 4.0 MMOL/L (3.6-5.0) 07/26/17 07:00 Chloride 106 mmol/L (98-107) 07/26/17 07:00 Carbon Dioxide 26 mmol/L (22-30) 07/26/17 07:00 Anion Gap 8 (10-20) L 07/26/17 07:00 BUN 17 mg/dl (9-20) 07/26/17 07:00 Creatinine 0.9 mg/dl (0.8-1.5) 07/26/17 07:00 Est GFR ( Amer) > 60 07/26/17 07:00 Est GFR (Non-Af Amer) > 60 07/26/17 07:00 POC Glucose (mg/dL) 289 mg/dL (65-110) H 07/27/17 11:18 Random Glucose 168 mg/dL (75-110) H 07/26/17 07:00 Calcium 7.8 mg/dL (8.4-10.2) L 07/26/17 07:00 Total Bilirubin 0.9 mg/dl (0.2-1.3) 07/26/17 07:00 AST 87 U/L (17-59) H D 07/26/17 07:00 ALT 96 U/L (21-72) H 07/26/17 07:00 Alkaline Phosphatase 138 U/L (38-126) H 07/26/17 07:00 Total Protein 6.1 G/DL (6.3-8.2) L 07/26/17 07:00 Albumin 3.4 g/dL (3.5-5.0) L 07/26/17 07:00 Globulin 2.7 gm/dL (2.2-3.9) 07/26/17 07:00 Albumin/Globulin Ratio 1.2 (1.0-2.1) 07/26/17 07:00 Venous Blood Potassium 4.3 mmol/L (3.6-5.2) 07/24/17 13:08 Blood Type A POSITIVE 07/24/17 18:10 Antibody Screen Negative 07/24/17 18:10 BBK History Checked No verified bt 07/24/17 18:10 Discharge Exam - Head Exam Head Exam: ATRAUMATIC, NORMAL INSPECTION, NORMOCEPHALIC - Eye Exam Eye Exam: EOMI, Normal appearance, PERRL Pupil Exam: NORMAL ACCOMODATION, PERRL - Respiratory Exam Respiratory Exam: Clear to PA & Lateral, NORMAL BREATHING PATTERN, UNREMARKABLE - Cardiovascular Exam Cardiovascular Exam: REGULAR RHYTHM, RRR, +S1, +S2 - GI/Abdominal Exam GI & Abdominal Exam: Normal Bowel Sounds - Extremities Exam Extremities exam: full ROM, normal capillary refill, normal inspection, pedal pulses present - Back Exam Back exam: FULL ROM - Neurological Exam Neurological exam: Alert, CN II-XII Intact, Normal Gait, Oriented x3, Reflexes Normal - Psychiatric Exam Psychiatric exam: Normal Affect, Normal Mood - Skin Skin Exam: Dry, Intact, Normal Color, Warm Discharge Plan - Discharge Medications Prescriptions: Amoxicillin/Clavulanate [Augmentin 875 MG-125 MG] 1 tab PO BID #14 tab oxyCODONE/Acetaminophen [Percocet 5/325 mg Tab] 1 tab PO Q4 PRN #10 tab PRN Reason: Pain, Moderate (4-7) - Follow Up Plan Condition: STABLE Disposition: HOME/ ROUTINE Additional Instructions: final dx-perirectal abscess, doing well ministerio pain. no further diarrhea after starting bacid and immodium last night. no f/c, n/v/d. ministerio po for dc today will follow lft/us outpt
[2017-07-27 12:57] LABS: BASO % 0.9 % (0.0-2.0); EOS # 0.1 K/uL (0.0-0.7); EOS % 1.5 % (0.0-4.0); LYMPH # 0.9 K/uL (1.0-4.3); LYMPH % 23.3 % (20.0-40.0); MEAN CELL VOLUME 89.7 fl (80.0-94.0); MEAN CORPUSCULAR HEMOGLOBIN 30.8 pg (27.0-31.0); MEAN CORPUSCULAR HGB CONC 34.3 g/dL (33.0-37.0); MEAN PLATELET VOLUME 6.8 fl (7.2-11.7); MONO # 0.6 K/uL (0.0-0.8); MONO % 15.7 % (0.0-10.0); NEUT # 2.2 K/uL (1.8-7.0); NEUT % 58.6 % (50.0-75.0); RED CELL DISTRIBUTION WIDTH 12.9 % (11.5-14.5); WHITE BLOOD COUNT 3.7 K/uL (4.8-10.8)
[2017-07-27 13:18] LABS: ALB/GLOB RATIO 1.3 (1.0-2.1); ALKALINE PHOSPHATASE 132 U/L (38-126); ALT/SGPT 79 U/L (21-72); AST/SGOT 70 U/L (17-59); BILIRUBIN,TOTAL 0.7 mg/dl (0.2-1.3); BLOOD UREA NITROGEN 13 mg/dl (9-20); CALCIUM 8.5 mg/dL (8.4-10.2); CARBON DIOXIDE 24 mmol/L (22-30); CHLORIDE 100 mmol/L (98-107); GFR AFRICAN-AMERICAN > 60; GLUCOSE,RANDOM 297 mg/dL (75-110); POTASSIUM 3.4 MMOL/L (3.6-5.0); SODIUM 133 mmol/l (132-148); TOTAL PROTEIN 5.8 G/DL (6.3-8.2)
[2017-07-27] MEDS ORDERED: Potassium Chloride 20 mEq ER Tab PO ONE (13:24)
--- NOTE | 2017-07-27 17:43 | US ---
HISTORY: elev lft COMPARISON: None. TECHNIQUE: Sonographic evaluation of the right upper quadrant of the abdomen. FINDINGS: LIVER: Liver is enlarged measuring approximately 20 cm in CC dimension. Liver demonstrates smooth contour however slight increased echotexture ; findings could be secondary to fatty infiltration however other infiltrative hepatocellular disease process not excluded. . No mass. No intrahepatic bile duct dilatation. No evidence of ascites GALLBLADDER: Unremarkable. No gallstones. . No pericholecystic fluid collections or sonographic [place] sign COMMON BILE DUCT: Measures approximately 6 mm. No stones. No dilatation. PANCREAS: Not visualized due to overlying bowel gas RIGHT KIDNEY: Right kidney measures approximately 10.6 x 5.6 x 5.9 cm cm in length. Normal echogenicity. No calculus, mass, or hydronephrosis. AORTA: No aneurysmal dilatation. IVC: Unremarkable. OTHER FINDINGS: None . IMPRESSION: Mild increased hepatic echotexture ; rule out fatty infiltration however other infiltrative hepatocellular disease process not excluded. .
== END 2017-07-27 16:15 | disposition home or self-care (01) | DRG 395 ==
LOC: H.ER 12:21 → H.ERHOLD 17:22 → H.MEDSURG1 19:11
PROVIDERS: ADMIT Family Medicine; ATTEND Family Medicine
PROC: 0D9Q3ZZ Drainage of Anus, Percutaneous Approach (ICD-10-PCS; principal; 2017-07-25 12:00)
DX: K61.2 Anorectal abscess (principal); E11.65 Type 2 diabetes mellitus with hyperglycemia; K76.0 Fatty (change of) liver, not elsewhere classified; I10 Essential (primary) hypertension; Z79.899 Other long term (current) drug therapy; Z87.891 Personal history of nicotine dependence; K29.70 Gastritis, unspecified, without bleeding; Z79.84 Long term (current) use of oral hypoglycemic drugs